=== PATIENT | female | born 2000 | race Caucasian/White ===

== ENCOUNTER 2021-01-13 13:34 | Outpatient (CLI) | payer MEDICAID | END 2021-01-13 14:27 | disposition home or self-care (01) | LOC: LDOP 13:34 | PROVIDERS: ATTEND Obstetrics & Gynecology | DX: O26.899 Other specified pregnancy related conditions, unspecified trimester (principal); R10.9 Unspecified abdominal pain; Z3A.00 Weeks of gestation of pregnancy not specified | CPT/HCPCS: 59025 ==

== ENCOUNTER 2021-01-14 02:19 | Inpatient (IN) | payer MEDICAID ==
[~2021-01-14] VITALS: Ht 167.6 cm; Wt 60.3 kg
[2021-01-14 02:37] VITALS: BP 102/64
[2021-01-14] MEDS ORDERED: OXYTOCIN 30U/ 0.9% NaCL 500ML 500 ML ONE (05:16)
[2021-01-14] MEDS ORDERED: NEWBORN KIT ONE (05:16)
[2021-01-14] MEDS ORDERED: ONDANSETRON 2MG/ML, 2ML IVPush PRN (05:30)
[2021-01-14] MEDS ORDERED: CALCIUM CARBONATE 500 MG TAB.CHEW PO PRN (05:30)
[2021-01-14] MEDS ORDERED: D5%-LACTATED RINGERS 1,000 ML IV SCH (05:30)
[2021-01-14] MEDS ORDERED: ALUMINUM/MAG/SIMETHICONE 30 ML UDC PO PRN (05:30)
[2021-01-14] MEDS ORDERED: TERBUTALINE 1 MG/ML, 1ML SQ PRN (05:30)
[2021-01-14] MEDS ORDERED: SODIUM CHLORIDE FLUSH 10ML SYR IVF PRN (05:30)
[2021-01-14] MEDS ORDERED: SODIUM CITRATE/CITRIC ACID 30 ML UDC PO PRN (05:30)
[2021-01-14] MEDS ORDERED: FENTANYL PF 100 MCG/2ML IV PRN (05:30)
[2021-01-14] MEDS ORDERED: METOCLOPRAMIDE 5 MG/ML, 2ML IVPush PRN (05:30)
[2021-01-14] MEDS: LACTATED RINGERS 1,000 ML IV SCH ×4 (05:30→16:00)
[2021-01-14] MEDS ORDERED: OXYTOCIN 30U/ 0.9% NaCL 500ML 500 ML IV ONE (05:30)
[2021-01-14] MEDS ORDERED: TERBUTALINE 1 MG/ML, 1ML IVPush PRN (05:30)
[2021-01-14 05:39] VITALS: BP 102/64
[2021-01-14] MEDS ORDERED: LIDOCAINE 1%, 20ML ONE (05:39)
[2021-01-14] MEDS ORDERED: MISOPROSTOL 200 MCG TABLET ONE (05:39)
[2021-01-14 05:56] LABS: BASOPHILS % (AUTO) 0 % (0-1); EOSINOPHILS % (AUTO) 1 % (1-7); LYMPHOCYTES % (AUTO) 14 % (22-44); MEAN CORPUSCULAR HEMOGLOBIN 30.8 pg (27.0-34.8); MEAN CORPUSCULAR HGB CONC 33.2 g/dL (32.4-35.8); MEAN PLATELET VOLUME 8.6 fL (7.4-10.4); MONOCYTES % (AUTO) 6 % (2-9); NEUTROPHILS % (AUTO) 79 % (42-75); PLATELET COUNT 214 x10^3/uL (130-400); RED BLOOD COUNT 3.75 x10^6/uL (3.82-5.3); RED CELL DISTRIBUTION WIDTH 14.8 % (9.6-15.2)
[2021-01-14] MEDS: FENTANYL PF 100 MCG/2ML IVPush PRN ×3 (06:25→13:11)
[2021-01-14] MEDS ORDERED: NALOXONE 0.4 MG/ML, 1ML IVPush PRN (08:00)
[2021-01-14] MEDS ORDERED: LACTATED RINGERS 1,000 ML IVBOLUS PRN (08:00)
[2021-01-14] MEDS ORDERED: FENTANYL/BUPIV./NS/PF 250 ML EPIDCONT SCH (08:00)
[2021-01-14] MEDS ORDERED: OXYTOCIN 30U/ 0.9% NaCL 500ML 500 ML IV PRN (08:00)
[2021-01-14] MEDS ORDERED: EPHEDRINE 50 MG/ML, 1ML IVPush PRN (08:00)
[2021-01-14] MEDS ORDERED: BUPIVACAINE 0.25% ONE (13:08)
[2021-01-14] MEDS ORDERED: LACTATED RINGERS 1,000 ML INTUTE SCH (15:30)
[2021-01-14] MEDS ORDERED: LACTATED RINGERS 1,000 ML INTUTE PRN (15:30)
[2021-01-14] MEDS ORDERED: MISOPROSTOL 200 MCG TABLET PR PRN (18:00)
[2021-01-14] MEDS ORDERED: SIMETHICONE 80 MG CHEW TAB PO PRN (18:00)
[2021-01-14] MEDS ORDERED: OXYTOCIN 30U/ 0.9% NaCL 500ML 500 ML IV SCH (18:00)
[2021-01-14] MEDS: IBUPROFEN 600 MG TABLET PO PRN (18:10)
[2021-01-14 19:15] VITALS: BP 103/64
[2021-01-14] MEDS: HYDROcodone/APAP 5/325 TABLET PO PRN (23:44)
[2021-01-15 00:15] VITALS: BP 108/63
[2021-01-15 04:00] VITALS: BP 112/69
[2021-01-15] MEDS: IBUPROFEN 600 MG TABLET PO PRN ×3 (04:29→21:05)
[2021-01-15 09:25] VITALS: BP 103/63
[2021-01-15] MEDS: DOCUSATE 100 MG CAPSULE PO PRN ×2 (09:35→21:05)
[2021-01-15] MEDS: PRENATAL VIT/IRON/FA 1 EACH TABLET PO SCH (09:35)
[2021-01-15 12:40] VITALS: BP 96/64
[2021-01-15 20:42] LABS: BASOPHILS % (AUTO) 0 % (0-1); EOSINOPHILS % (AUTO) 1 % (1-7); LYMPHOCYTES % (AUTO) 15 % (22-44); MEAN CORPUSCULAR HEMOGLOBIN 31.3 pg (27.0-34.8); MEAN PLATELET VOLUME 9.1 fL (7.4-10.4); MONOCYTES % (AUTO) 8 % (2-9); NEUTROPHILS % (AUTO) 76 % (42-75); PLATELET COUNT 217 x10^3/uL (130-400); RED CELL DISTRIBUTION WIDTH 15.1 % (9.6-15.2)
[2021-01-15 20:43] VITALS: BP 105/67
[2021-01-15] MEDS: HYDROcodone/APAP 5/325 TABLET PO PRN (21:05)
[2021-01-16] MEDS: HYDROcodone/APAP 5/325 TABLET PO PRN ×2 (01:04→05:46)
[2021-01-16] MEDS: IBUPROFEN 600 MG TABLET PO PRN (05:46)
[2021-01-16 08:32] VITALS: BP 94/55
[2021-01-16] MEDS: PRENATAL VIT/IRON/FA 1 EACH TABLET PO SCH (08:39)
[2021-01-16] MEDS: DOCUSATE 100 MG CAPSULE PO PRN (08:39)
== END 2021-01-16 12:39 | disposition home or self-care (01) | DRG 807 ==
LOC: LDOP 02:19 → LDIP 05:15 → 2NW 18:50
PROVIDERS: ADMIT Obstetrics & Gynecology; ATTEND Obstetrics & Gynecology
PROC: 10H07YZ Insertion of Other Device into Products of Conception, Via Natural or Artificial Opening (ICD-10-PCS; principal; 2021-01-14)
PROC: 10D07Z6 Extraction of Products of Conception, Vacuum, Via Natural or Artificial Opening (ICD-10-PCS; 2021-01-14)
PROC: 0W8NXZZ Division of Female Perineum, External Approach (ICD-10-PCS; 2021-01-14)
PROC: 3E0R3BZ Introduction of Anesthetic Agent into Spinal Canal, Percutaneous Approach (ICD-10-PCS; 2021-01-14)
PROC: 00HU33Z Insertion of Infusion Device into Spinal Canal, Percutaneous Approach (ICD-10-PCS; 2021-01-14)
DX: O76 Abnormality in fetal heart rate and rhythm complicating labor and delivery (principal); Z37.0 Single live birth; Z3A.40 40 weeks gestation of pregnancy; Z88.0 Allergy status to penicillin
CPT/HCPCS: 36415; J3490; 85025; 86592; 86850; 86900; 87635; G0378; J3010; J2590; J7120